=== PATIENT | female | born 1960 | race American Indian/Alaskan Native ===

== ENCOUNTER 2016-12-04 00:28 | Emergency (ER) | payer MEDICAID ==
[2016-12-04 08:04] LABS: Basophils % (Auto) 0.8 % (0.0-1.8); Eosinophils % (Auto) 2.8 % (0.0-4.3); Hematocrit 38.3 % (30.3-42.9); Hemoglobin 12.9 gm/dl (10.1-14.3); Mean Corpuscular HGB Conc 34 % (30-34); Mean Corpuscular Hemoglobin 30 pg (28-32); Mean Corpuscular Volume 90 fl (79-97); Platelet Count 324 K/mm3 (140-440); Red Blood Count 4.27 M/mm3 (3.65-5.03); White Blood Count 6.9 K/mm3 (4.5-11.0)
[2016-12-04 08:36] VITALS: BP 156/89
[2016-12-04 08:51] LABS: Anion Gap 19 mmol/L; BUN/Creatinine Ratio 3.75; Blood Urea Nitrogen 3 mg/dL (7-17); Calcium 9.4 mg/dL (8.4-10.2); Carbon Dioxide 26 mmol/L (22-30); Chloride 94.6 mmol/L (98-107); Glucose 375 mg/dL (65-100); Potassium 4.2 mmol/L (3.6-5.0); Sodium 135 mmol/L (137-145)
--- NOTE | 2016-12-04 09:06 | Emergency Department Report ---
HPI - General Chief Complaint: Chest Pain Time Seen by Provider: 12/04/16 07:51 - HPI HPI: This is a 56-year-old Afro-Citizen Of [place] female who presents to the emergency department with a few complaints. The patient complains to me of a right hand rash that has been going on for the past 6 months. She says it is not itchy and shows her hand with small flesh-colored bumps over the knuckles and the dorsal hand. She has no problem with range of motion and denies any weeping, bleeding, drainage. She is not taken anything for the rash. She also asks for a refill of her medications, Cogentin and Seroquel. She has a history of paranoid schizophrenia but denies any current auditory or visual hallucinations , suicidal or homicidal ideations. Patient must have complained of some type of chest pain through triage as that workup was started for her. However the patient denies any chest pain at this time and does not seem to remember telling anyone that she did have chest pain. Patient is not very forthcoming in giving me details on her living situation or the names of her physicians. However otherwise the patient is calm and cooperative and does not appear in any distress. She says that a friend dropped her off at the hospital to be seen today. ED Past Medical Hx - Past Medical History Hx Psychiatric Treatment: Yes (paranoid schizophrenia) - Surgical History Past Surgical History?: No - Social History Smoking Status: Current Every Day Smoker Substance Use Type: None - Medications Home Medications: Home Medications Medication Instructions Recorded Confirmed Last Taken Type Cogentin 2 mg PO DAILY #30 12/04/16 Unknown Rx SEROquel 200 mg PO DAILY #30 12/04/16 Unknown Rx ED Review of Systems ROS: Stated complaint: MH EVAL Other details as noted in HPI Comment: All other systems reviewed and negative Constitutional: denies: chills, fever Eyes: denies: eye pain, eye discharge, vision change ENT: denies: ear pain, throat pain Respiratory: denies: cough, shortness of breath, wheezing Cardiovascular: denies: chest pain, palpitations Gastrointestinal: denies: abdominal pain, nausea, diarrhea Genitourinary: denies: urgency, dysuria, discharge Musculoskeletal: denies: back pain, joint swelling, arthralgia Skin: rash. denies: pruritus Neurological: denies: headache, weakness, paresthesias Psychiatric: denies: auditory hallucinations, visual hallucinations, homicidal thoughts, suicidal thoughts Physical Exam - Physical Exam Vital Signs: Vital Signs 12/04/16 12/04/16 12/04/16 01:09 08:28 08:30 Temperature 98.1 F Pulse Rate 110 H Respiratory 16 Rate Blood Pressure 136/93 156/89 156/89 O2 Sat by Pulse 98 98 Oximetry 12/04/16 08:35 Temperature 98.7 F Pulse Rate Respiratory Rate Blood Pressure O2 Sat by Pulse Oximetry Physical Exam: GENERAL: The patient is well-developed well-nourished. HEENT: Normocephalic. Atraumatic. Extraocular motions are intact. Patient has moist mucous membranes. Pupils equal reactive to light bilaterally. NECK: Supple. Trachea is midline. CHEST/LUNGS: Clear to auscultation. There is no respiratory distress noted. HEART/CARDIOVASCULAR: Regular. There is no tachycardia. There is no gallop rub or murmur. ABDOMEN: Abdomen is soft, nontender. Patient has normal bowel sounds. There is no abdominal distention. SKIN: Patient has some flesh-colored papules seen to the dorsum the left hand but there is nothing in the flexor surfaces. No excoriations, leading, weeping or drainage. Skin is warm and dry. NEURO: The patient is awake, alert, and oriented. The patient is cooperative. The patient has no focal neurologic deficits. The patient has normal speech and gait. MUSCULOSKELETAL: There is no tenderness or deformity. There is no limitation range of motion. There is no evidence of acute injury. ED Course Vital Signs 12/04/16 12/04/16 12/04/16 01:09 08:28 08:30 Temperature 98.1 F Pulse Rate 110 H Respiratory 16 Rate Blood Pressure 136/93 156/89 156/89 O2 Sat by Pulse 98 98 Oximetry 12/04/16 08:35 Temperature 98.7 F Pulse Rate Respiratory Rate Blood Pressure O2 Sat by Pulse Oximetry ED Medical Decision Making - Lab Data Result diagrams: 12/04/16 07:47 12/04/16 07:47 - EKG Data -: EKG Interpreted by [facility] EKG shows normal: sinus rhythm, axis (LAD), intervals, QRS complexes (LVH), ST- T waves Rate: tachycardia (107 bpm) - EKG Data When compared to previous EKG there are: previous EKG unavailable Interpretation: LVH - Medical Decision Making This is a 56-year-old female who presents to the emergency department with a few different complaints. Patient does have history of schizophrenia but denies any suicidal or homicidal ideations, and denies any hallucinations. While the patient may not be forthcoming with answering certain questions, she has mostly cooperative and follows commands. She has a slightly strange demeanor but does not necessarily appear to be in any acute psychosis. The patient was allegedly evaluated through triage for chest discomfort, she had labs that showed a negative troponin and an EKG that does not show any signs of ST elevation DC, ischemia or dysrhythmia. Patient denies any chest discomfort at this time or today at all. She complains of a small rash to the hand that is a nonspecific dermatitis. There is nothing in the flexor surfaces and does not appear consistent with scabies. Patient is not pruritic and there are no excoriations. This patient does not have any suicidal or homicidal ideations or any hallucinations and does not appear to be in any psychosis, she is not a candidate to be made a 1013 or for inpatient psychiatric treatment. Patient is requesting a refill of her medications which she has been given a one-month supply. She is also been given a referral for the [facility] and a primary care physician. She's been encouraged to return with any worsening of her symptoms or any acute distress. The only significant abnormality in her labs was the hyperglycemia. She does not appear to be in diabetic ketoacidosis or HHNK. She was given 12 units of subcutaneous insulin. I wanted to recheck the patient's blood sugar level in about one hour but the patient was not willing to stay. Since she has not eaten 13 candidate, she was discharged with a refill of her medications but encouraged to eat some lunch that he is healthy and low in sugar and carbohydrates, and recheck her blood sugar. She will return to the ER with any worsening of her symptoms or any acute distress. - Differential Diagnosis DKA, HHNK, schizophrenia, dermatitis Critical Care Time: No Critical care attestation.: If time is entered above; I have spent that time in minutes in the direct care of this critically ill patient, excluding procedure time. ED Disposition Clinical Impression: History of schizophrenia, Medication refill, Dermatitis, Hyperglycemia Disposition: DISCHARGED TO HOME OR SELFCARE Is pt being admited?: No Does the pt Need Aspirin: No Condition: Good Instructions: Schizophrenia (ED) Additional Instructions: Please follow-up with a primary care doctor and your psychiatrist. I given you a referral for the [facility] facility for future psychiatric medication refills. Return to the emergency department with any acute distress. Prescriptions: Cogentin 2 mg PO DAILY #30 SEROquel 200 mg PO DAILY #30 Referrals: RANDI BROWNING MD [Primary Care Provider] - 3-5 Days KATHRYN VALLE MD [Staff Physician] - 3-[address] [facility] [Outside] - 3-5 Days [facility] [Outside] - 3-5 Days Time of Disposition: 10:04
== END 2016-12-04 10:18 | disposition home or self-care (01) ==
LOC: EEVIPCON 00:28 → ED 00:28
DX: L30.9 Dermatitis, unspecified (principal); R73.9 Hyperglycemia, unspecified; F20.0 Paranoid schizophrenia; F17.200 Nicotine dependence, unspecified, uncomplicated
CPT/HCPCS: 36415; 80048; 82962; 84484; 85025; 93005; 93010; 96372; J1815

== ENCOUNTER 2017-06-05 09:53 | Emergency (ER) | payer MEDICAID ==
[2017-06-05 10:55] VITALS: BP 142/84
[2017-06-05 11:00] LABS: Basophils % (Auto) 0.9 % (0.0-1.8); Eosinophils % (Auto) 2.7 % (0.0-4.3); Hematocrit 38.8 % (30.3-42.9); Hemoglobin 13.5 gm/dl (10.1-14.3); Mean Corpuscular HGB Conc 35 % (30-34); Mean Corpuscular Hemoglobin 31 pg (28-32); Mean Corpuscular Volume 89 fl (79-97); Platelet Count 367 K/mm3 (140-440); Red Blood Count 4.38 M/mm3 (3.65-5.03); Red Cell Distribution Width 12.8 % (13.2-15.2); White Blood Count 6.3 K/mm3 (4.5-11.0)
--- NOTE | 2017-06-05 11:08 | Emergency Department Report ---
ED Psych HPI - General Chief Complaint: Psych Stated Complaint: HEARING VOICES /MH Time Seen by Provider: 06/05/17 10:55 Source: patient, EMS Mode of arrival: Stretcher - History of Present Illness Initial Comments: Patient states that she doesn't like her present living status. She is having constant and daily problems with voices that "tell me what to do but they don't pain me". She states that she was previously admitted to [facility] perhaps 2 years ago. She states that she is getting her psychiatric medicine Cogentin and Haldol and Seroquel from [facility] but she doesn't like the care she is getting there and would rather go to [facility]. Apparently she is having paranoid ideation. In addition she is not compliant with all her psychiatric medication. MD Complaint: suicidal ideation (states that sometime she has this but has not done anything to harm herself.), other -: year(s) Associated Psychiatric Symptoms: racing thoughts, auditory hallucinations, other (paranoid ideation) History of same: Yes Quality: constant Improves With: none Worsens With: none Context: not taking psychiatric Associated Symptoms: denies other symptoms - Related Data Previous Rx's Medication Instructions Recorded Last Taken Type Cogentin 2 mg PO DAILY #30 12/04/16 Unknown Rx SEROquel 200 mg PO DAILY #30 12/04/16 Unknown Rx metFORMIN [Glucophage] 500 mg PO BID #60 tablet 06/05/17 Unknown Rx Allergies Allergy/AdvReac Type Severity Reaction Status Date / Time codeine Allergy Unknown Verified 06/05/17 10:30 Penicillins Allergy Unknown Verified 06/05/17 10:30 ED Review of Systems ROS: Stated complaint: HEARING VOICES /MH Other details as noted in HPI Constitutional: denies: chills, fever Eyes: denies: eye pain, eye discharge, vision change ENT: denies: ear pain, throat pain Respiratory: denies: cough, shortness of breath, wheezing Cardiovascular: denies: chest pain, palpitations Endocrine: no symptoms reported Gastrointestinal: denies: abdominal pain, nausea, diarrhea Genitourinary: denies: urgency, dysuria, discharge Musculoskeletal: denies: back pain, joint swelling, arthralgia Skin: denies: rash, lesions Neurological: denies: headache, weakness, paresthesias Psychiatric: as per HPI Hematological/Lymphatic: denies: easy bleeding, easy bruising ED Past Medical Hx - Past Medical History Hx Psychiatric Treatment: Yes (paranoid schizophrenia) - Social History Smoking Status: Unknown if ever smoked - Medications Home Medications: Home Medications Medication Instructions Recorded Confirmed Last Taken Type Cogentin 2 mg PO DAILY #30 12/04/16 Unknown Rx SEROquel 200 mg PO DAILY #30 12/04/16 Unknown Rx metFORMIN [Glucophage] 500 mg PO BID #60 tablet 06/05/17 Unknown Rx ED Physical Exam - General Limitations: No Limitations General appearance: alert, in no apparent distress - Head Head exam: Present: atraumatic, normocephalic - Eye Eye exam: Present: normal appearance - ENT ENT exam: Present: mucous membranes moist - Neck Neck exam: Present: normal inspection - Respiratory Respiratory exam: Present: normal lung sounds bilaterally. Absent: respiratory distress - Cardiovascular Cardiovascular Exam: Present: regular rate, normal rhythm. Absent: systolic murmur, diastolic murmur, rubs, gallop - GI/Abdominal GI/Abdominal exam: Present: soft, normal bowel sounds. Absent: distended, tenderness, guarding, rebound, rigid - Extremities Exam Extremities exam: Present: normal inspection - Back Exam Back exam: Present: normal inspection - Neurological Exam Neurological exam: Present: alert, oriented X3, CN II-XII intact, normal gait. Absent: motor sensory deficit - Psychiatric Psychiatric exam: Present: agitated, manic, other (hyperverbal) - Skin Skin exam: Present: warm, dry, intact, normal color. Absent: rash ED Course Vital Signs 06/05/17 06/05/17 06/05/17 10:19 10:24 10:54 Temperature 97.9 F Pulse Rate 88 90 Respiratory 16 16 16 Rate Blood Pressure 130/80 Blood Pressure 142/84 [Left] O2 Sat by Pulse 96 96 97 Oximetry - Reevaluation(s) Reevaluation #1: Mental health notified of the need for placement. Patient meets 1013 hold at least for stabilization of her paranoid ideation and acute on chronic psychosis. 06/05/17 11:07 Reevaluation #2: Patient was placed on Geodon. She has been calm. Discussed with mental health counselors. 1013 has been executed. Placement is pending 06/05/17 16:12 ED Medical Decision Making - Lab Data Result diagrams: 06/05/17 10:47 06/05/17 10:47 Laboratory Results - last 24 hr 06/05/17 10:47 WBC 6.3 RBC 4.38 Hgb 13.5 Hct 38.8 MCV 89 MCH 31 MCHC 35 H RDW 12.8 L Plt Count 367 Lymph % (Auto) 31.1 [place] % (Auto) 9.9 H Eos % (Auto) 2.7 Baso % (Auto) 0.9 Lymph # 2.0 [place] # 0.6 Eos # 0.2 Baso # 0.1 Seg Neutrophils % 55.4 Seg Neutrophils # 3.5 Laboratory Results - last 24 hr 06/05/17 06/05/17 06/05/17 10:40 10:47 10:47 WBC 6.3 RBC 4.38 Hgb 13.5 Hct 38.8 MCV 89 MCH 31 MCHC 35 H RDW 12.8 L Plt Count 367 Lymph % (Auto) 31.1 [place] % (Auto) 9.9 H Eos % (Auto) 2.7 Baso % (Auto) 0.9 Lymph # 2.0 [place] # 0.6 Eos # 0.2 Baso # 0.1 Seg Neutrophils % 55.4 Seg Neutrophils # 3.5 Sodium 134 L Potassium 3.5 L Chloride 94.1 L Carbon Dioxide 22 Anion Gap 21 BUN 13 Creatinine 0.8 Estimated GFR > 60 BUN/Creatinine Ratio 16.25 Glucose 281 H Calcium 9.4 Plasma/Serum Alcohol < 0.01 Critical care attestation.: If time is entered above; I have spent that time in minutes in the direct care of this critically ill patient, excluding procedure time. 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
[2017-06-05] MEDS ORDERED: MILK OF MAGNESIA PO PRN (11:09)
[2017-06-05] MEDS ORDERED: ALUM-MAG HYDROX-SIMETH 200-200-20MG/5ML PO PRN (11:09)
[2017-06-05] MEDS ORDERED: TYLENOL PO PRN (11:09)
[2017-06-05 11:12] LABS: Anion Gap 21 mmol/L; BUN/Creatinine Ratio 16.25; Blood Urea Nitrogen 13 mg/dL (7-17); Calcium 9.4 mg/dL (8.4-10.2); Carbon Dioxide 22 mmol/L (22-30); Chloride 94.1 mmol/L (98-107); Glucose 281 mg/dL (65-100); Potassium 3.5 mmol/L (3.6-5.0); Sodium 134 mmol/L (137-145)
[2017-06-05] MEDS ORDERED: GEODON PO SCH (12:00)
[2017-06-05] MEDS ORDERED: GEODON IM PRN (16:19)
[2017-06-05 17:10] LABS: Urine Drugs of Abuse Note Disclamer
[2017-06-05 17:22] LABS: Bacteria,Urine 2+ /HPF (Negative); Bilirubin,Urine NEG (Negative); Blood,Urine MOD (Negative); Ketones,Urine NEG (Negative); Leukocyte Esterase,Urine LG (Negative); Mucus,Urine FEW /HPF; Nitrite,Urine NEG (Negative); Protein,Urine <15 mg/dL mg/dL (Negative)
[2017-06-05] MEDS ORDERED: GLUCOPHAGE PO SCH (22:00)
--- NOTE | 2017-06-05 23:21 | Consultation ---
History of Present Illness - Reason for Consult Consult date: 06/05/17 Reason for consult: psychiatric evaluation - Chief Complaint Chief complaint: "I don't want to answer anymore questions." - History of Present Psychiatric Illness 56 year old female seen in the ER for psychiatric evaluation. She was minimally cooperative on interivew. Per the record, she told the ER physician she doesn't like her present living status. Per the record she is having constant and daily problems with voices that "tell me what to do but they don't pain me". She confirmed being previously admitted to [facility] a couple of years ago. She expressed thoughts that her medications are poisoned and then threw them away. She is exhibiting paranoid delusions and did not provide additional information. Medications and Allergies Allergies Allergy/AdvReac Type Severity Reaction Status Date / Time codeine Allergy Unknown Verified 06/05/17 10:30 Penicillins Allergy Unknown Verified 06/05/17 10:30 Home Medications Medication Instructions Recorded Confirmed Last Taken Type Cogentin 2 mg PO DAILY #30 12/04/16 Unknown Rx SEROquel 200 mg PO DAILY #30 12/04/16 Unknown Rx metFORMIN [Glucophage] 500 mg PO BID #60 tablet 06/05/17 Unknown Rx Past psychiatric history - Past Medical History Past Medical History: other (unknown) - past Psychiatric treatment and history psychiatric treatment history: [facility] hospitalization - Social History Social history: other (unknown) Mental Status Exam - Vital signs Last Vital Signs Temp 97.9 F 06/05/17 10:54 Pulse 90 06/05/17 10:54 Resp 16 06/05/17 10:54 BP 142/84 06/05/17 10:54 Pulse Ox 97 06/05/17 10:54 - Exam Narrative exam: She is mostly uncooperative. She is alert and oriented to person, place, and time. Signs of paranoia are present and delusions are likely. She expressed suicidal ideation, per the record. Unable to obtain additional information from the patient. Results Result Diagrams: 06/05/17 10:47 06/05/17 10:47 Abnormal lab results 06/05/17 06/05/17 06/05/17 Range/Units 10:47 10:47 17:08 MCHC 35 H (30-34) % RDW 12.8 L (13.2-15.2) % [place] % (Auto) 9.9 H (0.0-7.3) % Sodium 134 L (137-145) mmol/L Potassium 3.5 L (3.6-5.0) mmol/L Chloride 94.1 L (98-107) mmol/L Glucose 281 H (65-100) mg/dL Urine WBC (Auto) 12.0 H (0.0-6.0) /HPF All other labs normal. Assessment and Plan Assessment and plan: Impression: Psychosis unspecified She requires psychiatric stabilization Recommendation: 1013 and transfer to inpatient psychiatric facility.
== END 2017-06-05 19:44 ==
LOC: ED 09:53
DX: F23 Brief psychotic disorder (principal); F20.0 Paranoid schizophrenia; E11.65 Type 2 diabetes mellitus with hyperglycemia; Z88.0 Allergy status to penicillin; Z88.6 Allergy status to analgesic agent
CPT/HCPCS: 36415; 80048; 80307; 81001; 85025; 99285; G0480; 80320

== ENCOUNTER 2017-09-25 17:06 | Emergency (ER) | payer MEDICAID ==
[2017-09-25 18:55] LABS: Basophils % (Auto) 0.7 % (0.0-1.8); Eosinophils % (Auto) 2.8 % (0.0-4.3); Hemoglobin 14.2 gm/dl (10.1-14.3); Mean Corpuscular HGB Conc 34 % (30-34); Mean Corpuscular Hemoglobin 31 pg (28-32); Mean Corpuscular Volume 90 fl (79-97); Platelet Count 343 K/mm3 (140-440); Red Blood Count 4.66 M/mm3 (3.65-5.03); Red Cell Distribution Width 12.9 % (13.2-15.2); White Blood Count 6.2 K/mm3 (4.5-11.0)
[2017-09-25 19:05] LABS: Anion Gap 16 mmol/L; BUN/Creatinine Ratio 5; Blood Urea Nitrogen 4 mg/dL (7-17); Calcium 9.7 mg/dL (8.4-10.2); Carbon Dioxide 27 mmol/L (22-30); Chloride 95.5 mmol/L (98-107); Glucose 165 mg/dL (65-100); Sodium 134 mmol/L (137-145)
[2017-09-26 01:08] LABS: Urine Drugs of Abuse Note Disclamer
[2017-09-26 01:47] LABS: Bacteria,Urine 1+ /HPF (Negative); Bilirubin,Urine NEG (Negative); Blood,Urine MOD (Negative); Ketones,Urine NEG (Negative); Leukocyte Esterase,Urine LG (Negative); Mucus,Urine FEW /HPF; Nitrite,Urine NEG (Negative); Protein,Urine <15 mg/dL mg/dL (Negative)
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
--- NOTE | 2017-09-26 13:20 | Consultation ---
History of Present Illness - Reason for Consult Consult date: 09/26/17 Reason for consult: Mental Health Evaluation Requesting physician: ISABELLA JHAVERI - Chief Complaint Chief complaint: "It's demons and warlocks in my food" - History of Present Psychiatric Illness 56 y.o. AA female presenting to [facility] for bizarre behavior. Today patient is cooperative, but delusional and disorganized during the assessment. She stated warlocks and demons are located in the attic at her residence. She stated that someone is poisoning her food and medications. During the interview, she had to be redirected several times to keep her on the right topic. When asked more questions about how she ended up at the hospital, the patient answers were not logical. She stated hearing voices, but could not elaborate what the voices were saying. The patient stated that she take Seroquel and Cogentin. No gestures of SI/HI's. Medications and Allergies Allergies Allergy/AdvReac Type Severity Reaction Status Date / Time codeine Allergy Unknown Verified 06/05/17 10:30 Penicillins Allergy Unknown Verified 06/05/17 10:30 Home Medications Medication Instructions Recorded Confirmed Last Taken Type Cogentin 2 mg PO DAILY #30 12/04/16 Unknown Rx SEROquel 200 mg PO DAILY #30 12/04/16 Unknown Rx metFORMIN [Glucophage] 500 mg PO BID #60 tablet 06/05/17 Unknown Rx Nitrofurantoin [place]/M-Cryst 100 mg PO BID #10 capsule 09/26/17 Unknown Rx [Macrobid CAP] Past psychiatric history - Past Medical History Past Medical History: other (Unable to obtain) Past Surgical History: Other (Unable to obtain) - past Psychiatric treatment and history psychiatric treatment history: Per the record, patient been inpatient at [facility]. Cannot obtain a [facility] psy hx. - Social History Social history: other (per the patient - "I reside in a home") Mental Status Exam - Vital signs Last Vital Signs Temp 98 F 09/26/17 01:11 Pulse 95 H 09/26/17 01:11 Resp 18 09/26/17 01:11 BP 119/71 09/26/17 01:11 Pulse Ox 100 09/26/17 01:11 - Exam Narrative exam: MSE: Appearance: cooperative Behavior: regular eye contact Speech: loud tone Mood: agitated Affect: congruent to mood Thought Process: tangential Thought Content: denies SI/HI's and VH's, delusional, disorganized Motor Activity: sitting in the bed Cognition: A/O x3 Insight: poor Judgment: poor Results Result Diagrams: 09/25/17 18:23 09/25/17 18:23 Abnormal lab results 09/25/17 09/25/17 09/25/17 Range/Units 18:23 18:23 Unknown RDW 12.9 L (13.2-15.2) % Lymph % (Auto) 43.4 H (13.4-35.0) % [place] % (Auto) 9.3 H (0.0-7.3) % Sodium 134 L (137-145) mmol/L Chloride 95.5 L (98-107) mmol/L BUN 4 L (7-17) mg/dL Glucose 165 H (65-100) mg/dL Urine WBC (Auto) 34.0 H (0.0-6.0) /HPF All other labs normal. Assessment and Plan Assessment and plan: Impression: Unspecified Psychosis. Today patient is cooperative, but delusional and disorganized during the assessment. Urine WBC 36.0. UDS negative. DDx: Schizophrenia Paranoid Type, R/O Bipolar, Delusional DO Recommendation/Plan: Continue 1013 with placement to inpatient psy services. Start Seroquel 200 mg PO HS for psychosis and Cogentin 0.5 mg PO HS for EPS prevention. Discussed possible metabolic side effects of Seroquel with patient. Informed ER Physician about the patient's urine WBC of 36.
[2017-09-26] MEDS ORDERED: MACROBID PO ONE (15:05)
[2017-09-26 18:16] VITALS: BP 121/72
[2017-09-26] MEDS ORDERED: COGENTIN PO SCH (22:00)
== END 2017-09-26 18:32 ==
LOC: ED 17:06
DX: F29 Unspecified psychosis not due to a substance or known physiological condition (principal); F20.0 Paranoid schizophrenia
CPT/HCPCS: 36415; 80048; 80307; 81001; 85025; 99285; G0480; 80320

== ENCOUNTER 2017-10-20 12:34 | Emergency (ER) | payer MEDICAID ==
[2017-10-20 13:14] LABS: Basophils % (Auto) 0.8 % (0.0-1.8); Eosinophils % (Auto) 2.9 % (0.0-4.3); Hematocrit 36.8 % (30.3-42.9); Hemoglobin 12.1 gm/dl (10.1-14.3); Mean Corpuscular HGB Conc 33 % (30-34); Mean Corpuscular Hemoglobin 30 pg (28-32); Mean Corpuscular Volume 92 fl (79-97); Platelet Count 329 K/mm3 (140-440); Red Cell Distribution Width 13.4 % (13.2-15.2); White Blood Count 6.3 K/mm3 (4.5-11.0)
[2017-10-20 13:32] LABS: Anion Gap 20 mmol/L; BUN/Creatinine Ratio 10; Blood Urea Nitrogen 7 mg/dL (7-17); Calcium 9.2 mg/dL (8.4-10.2); Carbon Dioxide 26 mmol/L (22-30); Glucose 152 mg/dL (65-100); Potassium 4.3 mmol/L (3.6-5.0); Sodium 141 mmol/L (137-145)
[2017-10-20 13:34] LABS: Urine Drugs of Abuse Note Disclamer
[2017-10-20 13:43] LABS: Bilirubin,Urine NEG (Negative); Blood,Urine NEG (Negative); Ketones,Urine NEG (Negative); Leukocyte Esterase,Urine SM (Negative); Mucus,Urine FEW /HPF; Nitrite,Urine NEG (Negative)
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
--- NOTE | 2017-10-21 11:16 | Consultation ---
History of Present Illness - Reason for Consult Consult date: 10/21/17 Reason for consult: Mental Health Evaluation Requesting physician: NELY CALLE - Chief Complaint Chief complaint: "They are witches" - History of Present Psychiatric Illness 56 y.o. AA female presenting to [facility] for bizarre behavior. Per the record the patient report that a [place] sales representative cash registers is trying to poison her. Today the patient is calm with a tangential thought process. She stated that everyone at [place] are "witches." She stated that she does not want to return to her current residence because of the witches scare her. During the interview the patient had to be redirected several time to keep her on topic. She stated that she have not taken her medications in 2 days (Cogentin/Seroquel). She could not confirm or deny AH's, but denies VH's. She denies SI/HI's, sleep disturbance, and a poor appetite. She denies alcohol consumption (etoh), but admit to using cocaine. Medications and Allergies Allergies Allergy/AdvReac Type Severity Reaction Status Date / Time codeine Allergy Unknown Verified 06/05/17 10:30 erythromycin base Allergy Unknown Verified 10/20/17 12:46 Penicillins Allergy Unknown Verified 06/05/17 10:30 Home Medications Medication Instructions Recorded Confirmed Last Taken Type Cogentin 2 mg PO DAILY #30 12/04/16 10/20/17 Unknown Rx SEROquel 200 mg PO DAILY #30 12/04/16 10/20/17 Unknown Rx metFORMIN [Glucophage] 500 mg PO BID #60 tablet 06/05/17 10/20/17 Unknown Rx Nitrofurantoin [place]/M-Cryst 100 mg PO BID #10 capsule 09/26/17 10/20/17 Unknown Rx [Macrobid CAP] Past psychiatric history - Past Medical History Past Medical History: diabetes Past Surgical History: No surgical history - past Psychiatric treatment and history Psych: Schizophrenia psychiatric treatment history: Multiple inpatient psy services. Denies a fam psy hx. - Social History Social history: other (Reside at a senior care) Mental Status Exam - Vital signs Last Vital Signs Temp 98.9 F 10/21/17 05:54 Pulse 93 H 10/21/17 05:54 Resp 16 10/21/17 05:54 BP 119/73 10/21/17 05:54 Pulse Ox 100 12/25/17 05:54 - Exam Narrative exam: MSE: Appearance: calm, cooperative Behavior: regular eye contact Speech: regular rate and tone Mood: "okay" Affect: blunted Thought Process: tangential Thought Content: denies SI/HI's and VH's, disorganized Motor Activity: ambulatory Cognition: A/O x3 Insight: poor Judgment: poor Results Result Diagrams: 10/20/17 12:59 10/20/17 12:59 Abnormal lab results 10/20/17 10/20/17 Range/Units 12:59 12:59 Lymph % (Auto) 38.2 H (13.4-35.0) % [place] % (Auto) 8.8 H (0.0-7.3) % Glucose 152 H (65-100) mg/dL All other labs normal. Assessment and Plan Assessment and plan: Impression: Unspecified Psychosis. Substance Use DO (cocaine) Today the patient is calm with a tangential thought process. Patient positive for cocaine. DDx: Schizophrenia Paranoid Type, Delusional DO, R/O Substance Induced Psychosis Recommendation/Plan: Continue 1013 with placement to inpatient psy services. Explained to the patient possible metabolic side effects of Seroquel, patient takes Metformin for diabetes. She stated that she took Haldol in the past. Start Haldol 5 mg PO HS for psychosis and Cogentin 0.5 mg PO HS for EPS prevention.
[2017-10-21] MEDS ORDERED: COGENTIN PO SCH (22:00)
[2017-10-21] MEDS ORDERED: HALDOL PO SCH (22:00)
[2017-10-22] MEDS ORDERED: TYLENOL ONE (04:23)
[2017-10-22] MEDS ORDERED: TYLENOL PO PRN (04:35)
[2017-10-22] MEDS ORDERED: GEODON IM PRN (04:36)
[2017-10-22 09:26] VITALS: BP 140/90
--- NOTE | 2017-10-22 10:23 | Progress Note ---
Subjective - Reason for Consult Consult date: 10/22/17 Reason for consult: Psychiatry Follow-up - Chief Complaint Chief complaint: "The witches are still around" 56 y.o. AA female presenting to [facility] for bizarre behavior. Per the record the patient report that a j[place] telephone sales representative is trying to poison her. Today the patient is calm with a tangential thought process. The patient continue to state that witches are located at her current residence. She stated that the witches maybe "everywhere." She stated that the voices are getting worse, but she tries to ignore them. She denies SI/HI's and VH's. She denies any side effects of her medications. Mental Status Exam - Vital signs Last Vital Signs Temp 98.2 F 10/22/17 09:25 Pulse 87 10/22/17 09:25 Resp 18 10/22/17 09:25 BP 140/90 10/22/17 09:25 Pulse Ox 98 10/22/17 09:25 - Exam Narrative exam: MSE: Appearance: calm, cooperative Behavior: regular eye contact Speech: regular rate and tone Mood: "okay" Affect: blunted Thought Process: tangential Thought Content: denies SI/HI's and VH's, disorganized, delusional Motor Activity: ambulatory Cognition: A/O x3 Insight: poor Judgment: poor Assessment and Plan Impression: Unspecified Psychosis. Substance Use DO (cocaine) Today the patient is calm with a tangential thought process. Patient positive for cocaine. DDx: Schizophrenia Paranoid Type, Delusional DO, R/O Substance Induced Psychosis Recommendation/Plan: Continue 1013 with placement [facility] today. Explained to the patient possible metabolic side effects of Seroquel, patient takes Metformin for diabetes. She stated that she took Haldol in the past. Continue Haldol 5 mg PO HS for psychosis and Cogentin 0.5 mg PO HS for EPS prevention.
== END 2017-10-22 11:35 ==
LOC: EEVIPCON 12:34 → ED 12:34
DX: F14.10 Cocaine abuse, uncomplicated (principal); F22 Delusional disorders; F20.9 Schizophrenia, unspecified
CPT/HCPCS: 36415; 80048; 80307; 81001; 82962; 85025; 99285; G0480; 80320

== ENCOUNTER 2017-11-16 18:43 | Emergency (ER) | payer MEDICAID ==
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
[2017-11-16 23:46] LABS: Hemoglobin 12.5 gm/dl (10.1-14.3); Mean Corpuscular HGB Conc 34 % (30-34); Mean Corpuscular Hemoglobin 31 pg (28-32); Mean Corpuscular Volume 91 fl (79-97); Platelet Count 313 K/mm3 (140-440); Red Blood Count 4.08 M/mm3 (3.65-5.03); Red Cell Distribution Width 13.4 % (13.2-15.2)
[2017-11-17 00:09] LABS: Alanine Aminotransferase 15 units/L (7-56); Albumin 4.3 g/dL (3.9-5); BUN/Creatinine Ratio 12; Blood Urea Nitrogen 7 mg/dL (7-17); Hemolysis Index 9
[2017-11-17 07:48] LABS: Bilirubin,Urine NEG (Negative); Blood,Urine NEG (Negative); Color,Urine Yellow (Yellow); Mucus,Urine FEW /HPF; Nitrite,Urine NEG (Negative); Protein,Urine <15 mg/dL mg/dL (Negative)
[2017-11-17 10:46] VITALS: BP 126/86
[2017-11-17 11:54] LABS: Amphetamine Screen,Urine PRESUMPTIVE NEGATIVE; Benzodiazepines Screen,Urine PRESUMPTIVE NEGATIVE; Cannabinoid Screen,Urine PRESUMPTIVE NEGATIVE; Cocaine Screen,Urine PRESUMPTIVE NEGATIVE; Methadone Screen,Urine PRESUMPTIVE NEGATIVE; Opiate Screen,Urine PRESUMPTIVE NEGATIVE
[2017-11-17] MEDS ORDERED: GLUCOPHAGE ONE (12:17)
[2017-11-17] MEDS ORDERED: GLUCOPHAGE PO SCH (13:00)
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
== END 2017-11-17 21:55 | disposition other institution (70) ==
LOC: EEVIPCON 18:43 → ED 18:43
DX: F20.0 Paranoid schizophrenia (principal); F17.200 Nicotine dependence, unspecified, uncomplicated; Z88.0 Allergy status to penicillin; Z88.5 Allergy status to narcotic agent; Z88.8 Allergy status to other drugs, medicaments and biological substances
CPT/HCPCS: 36415; 80053; 80307; 81001; 82962; 85027; 99285

== ENCOUNTER 2018-02-13 22:07 | Emergency (ER) | payer MEDICAID ==
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
[2018-02-13 23:26] LABS: Basophils # (Auto) 0.1 K/mm3 (0.0-0.1); Eosinophils # (Auto) 0.2 K/mm3 (0.0-0.4); Eosinophils % (Auto) 2.2 % (0.0-4.3); Hematocrit 33.2 % (30.3-42.9); Hemoglobin 11.2 gm/dl (10.1-14.3); Lymphocytes # (Auto) 2.4 K/mm3 (1.2-5.4); Lymphocytes % (Auto) 34.8 % (13.4-35.0); Mean Corpuscular HGB Conc 34 % (30-34); Mean Corpuscular Hemoglobin 30 pg (28-32); Mean Corpuscular Volume 89 fl (79-97); Monocytes # (Auto) 0.5 K/mm3 (0.0-0.8); Platelet Count 384 K/mm3 (140-440); Red Blood Count 3.74 M/mm3 (3.65-5.03); Red Cell Distribution Width 13.4 % (13.2-15.2)
[2018-02-13 23:39] LABS: BUN/Creatinine Ratio 15; Blood Urea Nitrogen 12 mg/dL (7-17); Calcium 9.1 mg/dL (8.4-10.2); Hemolysis Index 3
[2018-02-14 12:31] LABS: Bilirubin,Urine NEG (Negative); Blood,Urine NEG (Negative); Color,Urine Yellow (Yellow); Protein,Urine <15 mg/dL mg/dL (Negative)
[2018-02-14 12:33] LABS: Amphetamine Screen,Urine PRESUMPTIVE NEGATIVE; Benzodiazepines Screen,Urine PRESUMPTIVE NEGATIVE; Cannabinoid Screen,Urine PRESUMPTIVE NEGATIVE; Cocaine Screen,Urine PRESUMPTIVE NEGATIVE; Methadone Screen,Urine PRESUMPTIVE NEGATIVE; Opiate Screen,Urine PRESUMPTIVE NEGATIVE
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
[2018-02-14 20:51] VITALS: BP 130/83
[2018-02-14] MEDS ORDERED: COGENTIN PO SCH (22:00)
[2018-02-14] MEDS ORDERED: HALDOL PO SCH (22:00)
== END 2018-02-14 20:38 ==
LOC: ED 22:07
DX: F23 Brief psychotic disorder (principal); F22 Delusional disorders; F20.0 Paranoid schizophrenia; Z88.0 Allergy status to penicillin; Z88.5 Allergy status to narcotic agent
CPT/HCPCS: 36415; 80048; 80307; 81001; 85025; 99285; G0480; 80320

== ENCOUNTER 2018-06-13 11:04 | Emergency (ER) | payer MEDICAID ==
--- NOTE | 2018-06-13 11:41 | Emergency Department Report ---
HPI - General Chief Complaint: Psych Time Seen by Provider: 06/13/18 11:33 - HPI HPI: [facility] The patient is a 57-year-old female presenting with chief complaint of combative behavior. The patient was a resident at [facility] and was reportedly combative. EMS was called and administered Haldol 5 mg, Versed 5 mg and Benadryl 50 mg prior to arrival. Patient is now resting comfortably. When awakened the patient states "I ain't did nothing." I asked the patient if anything is bothering her the patient replies "everything." Patient denies suicidal or homicidal ideation. Patient denies auditory hallucinations but admits to visual hallucinations. When asked what her visual hallucinations include the patient replies "some of everything." Location: Mental state Duration: [See above] Quality: Reported to have been combative Severity: Moderate Modifying factors: [see above] Context: [see above] Mode of transportation: [not driving] ED Past Medical Hx - Past Medical History Previous Medical History?: Yes Hx Psychiatric Treatment: Yes (paranoid schizophrenia) - Surgical History Additional Surgical History: BERTO - Family History Family history: no significant - Social History Smoking Status: Current Some Day Smoker Substance Use Type: Alcohol - Medications Home Medications: Home Medications Medication Instructions Recorded Confirmed Last Taken Type Cogentin 2 mg PO DAILY #30 12/04/16 10/20/17 Unknown Rx SEROquel 200 mg PO DAILY #30 12/04/16 10/20/17 Unknown Rx Nitrofurantoin [place]/M-Cryst 100 mg PO BID #10 capsule 09/26/17 10/20/17 Unknown Rx [Macrobid CAP] metFORMIN [Glucophage] 500 mg PO QDAY 11/17/17 11/17/17 Unknown History ED Review of Systems ROS: Stated complaint: ALTERED MENTAL STATUS Other details as noted in HPI Comment: Unobtainable due to pts medical conditions Psychiatric: visual hallucinations. denies: auditory hallucinations, homicidal thoughts, suicidal thoughts Physical Exam - Physical Exam Vital Signs: Vital Signs 06/13/18 11:32 Temperature 98.5 F Pulse Rate 79 Respiratory 18 Rate Blood Pressure 152/90 [Left] O2 Sat by Pulse 99 Oximetry Physical Exam: GENERAL: The patient is well-developed well-nourished female sleeping on stretcher not appearing to be in acute distress. Patient is awakened by verbal and tactile stimuli HEENT: Normocephalic. Atraumatic. Extraocular motions are intact. Patient has moist mucous membranes. NECK: Supple. Trachea midline CHEST/LUNGS: Clear to auscultation. There is no respiratory distress noted. HEART/CARDIOVASCULAR: Regular. There is no tachycardia. There is no gallop rub or murmur. ABDOMEN: Abdomen is soft, nontender. Patient has normal bowel sounds. There is no abdominal distention. SKIN: There is no rash. There is no edema. There is no diaphoresis. NEURO: The patient is awake and alert. The patient is cooperative. The patient has normal speech MUSCULOSKELETAL: There is no evidence of acute injury. ED Course Vital Signs 06/13/18 11:32 Temperature 98.5 F Pulse Rate 79 Respiratory 18 Rate Blood Pressure 152/90 [Left] O2 Sat by Pulse 99 Oximetry ED Medical Decision Making - Lab Data Result diagrams: 06/13/18 11:48 06/13/18 11:48 Laboratory Tests 06/13/18 06/13/18 06/13/18 11:48 11:48 11:48 WBC RBC Hgb Hct MCV MCH MCHC RDW Plt Count Lymph % (Auto) [place] % (Auto) Eos % (Auto) Baso % (Auto) Lymph # [place] # Eos # Baso # Seg Neutrophils % Seg Neutrophils # Sodium 140 Potassium 3.3 L Chloride 101.0 Carbon Dioxide 26 Anion Gap 16 BUN 6 L Creatinine 0.6 L Estimated GFR > 60 BUN/Creatinine Ratio 10 Glucose 116 H Calcium 9.0 Urine Color Urine Turbidity Urine pH Ur Specific [place] Urine Protein Urine Glucose (UA) Urine Ketones Urine Blood Urine Nitrite Urine Bilirubin Urine Urobilinogen Ur Leukocyte Esterase Urine WBC (Auto) Urine RBC (Auto) U Epithel Cells (Auto) Salicylates < 0.3 L Urine Opiates Screen Urine Methadone Screen Acetaminophen < 5.0 L Ur Barbiturates Screen Ur Phencyclidine Scrn Ur Amphetamines Screen Urine Cocaine Screen U Marijuana (THC) Screen Drugs of Abuse Note Plasma/Serum Alcohol 06/13/18 06/13/18 06/13/18 11:48 11:48 17:16 WBC 4.6 RBC 3.95 Hgb 12.0 Hct 35.3 MCV 89 MCH 30 MCHC 34 RDW 13.1 L Plt Count 337 Lymph % (Auto) 43.4 H [place] % (Auto) 9.5 H Eos % (Auto) 2.2 Baso % (Auto) 0.9 Lymph # 2.0 [place] # 0.4 Eos # 0.1 Baso # 0.0 Seg Neutrophils % 44.0 Seg Neutrophils # 2.0 Sodium Potassium Chloride Carbon Dioxide Anion Gap BUN Creatinine Estimated GFR BUN/Creatinine Ratio Glucose Calcium Urine Color Colorless Urine Turbidity Clear Urine pH 7.0 Ur Specific [place] 1.002 L Urine Protein <15 mg/dl Urine Glucose (UA) Neg Urine Ketones Neg Urine Blood Neg Urine Nitrite Neg Urine Bilirubin Neg Urine Urobilinogen 4.0 Ur Leukocyte Esterase Sm Urine WBC (Auto) 2.0 Urine RBC (Auto) 1.0 U Epithel Cells (Auto) 1.0 Salicylates Urine Opiates Screen Urine Methadone Screen Acetaminophen Ur Barbiturates Screen Ur Phencyclidine Scrn Ur Amphetamines Screen Urine Cocaine Screen U Marijuana (THC) Screen Drugs of Abuse Note Plasma/Serum Alcohol < 0.01 06/13/18 17:16 WBC RBC Hgb Hct MCV MCH MCHC RDW Plt Count Lymph % (Auto) [place] % (Auto) Eos % (Auto) Baso % (Auto) Lymph # [place] # Eos # Baso # Seg Neutrophils % Seg Neutrophils # Sodium Potassium Chloride Carbon Dioxide Anion Gap BUN Creatinine Estimated GFR BUN/Creatinine Ratio Glucose Calcium Urine Color Urine Turbidity Urine pH Ur Specific [place] Urine Protein Urine Glucose (UA) Urine Ketones Urine Blood Urine Nitrite Urine Bilirubin Urine Urobilinogen Ur Leukocyte Esterase Urine WBC (Auto) Urine RBC (Auto) U Epithel Cells (Auto) Salicylates Urine Opiates Screen Presumptive negative Urine Methadone Screen Presumptive negative Acetaminophen Ur Barbiturates Screen Presumptive negative Ur Phencyclidine Scrn Presumptive negative Ur Amphetamines Screen Presumptive negative Urine Cocaine Screen Presumptive negative U Marijuana (THC) Screen Presumptive negative Drugs of Abuse Note Disclamer Plasma/Serum Alcohol - Differential Diagnosis schizophrenia, combative behavior Critical care attestation.: If time is entered above; I have spent that time in minutes in the direct care of this critically ill patient, excluding procedure time. ED Disposition Clinical Impression: Schizophrenia, Combative behavior Disposition: DC/TX-65 PSY HOSP/PSY UNIT Is pt being admited?: No Does the pt Need Aspirin: No Condition: Fair Referrals: PRIMARY CARE, [Primary Care Provider] - 3-5 Days Time of Disposition: 18:08 (awaiting acceptance)
[2018-06-13] MEDS ORDERED: HALDOL IM PRN (11:58)
[2018-06-13] MEDS ORDERED: BENADRYL IM PRN (11:58)
[2018-06-13] MEDS ORDERED: ATIVAN IM PRN (11:58)
[2018-06-13 12:40] LABS: Basophils % (Auto) 0.9 % (0.0-1.8); Eosinophils # (Auto) 0.1 K/mm3 (0.0-0.4); Eosinophils % (Auto) 2.2 % (0.0-4.3); Hematocrit 35.3 % (30.3-42.9); Lymphocytes % (Auto) 43.4 % (13.4-35.0); Mean Corpuscular HGB Conc 34 % (30-34); Mean Corpuscular Hemoglobin 30 pg (28-32); Mean Corpuscular Volume 89 fl (79-97); Monocytes # (Auto) 0.4 K/mm3 (0.0-0.8); Monocytes % (Auto) 9.5 % (0.0-7.3); Platelet Count 337 K/mm3 (140-440); Red Blood Count 3.95 M/mm3 (3.65-5.03); Red Cell Distribution Width 13.1 % (13.2-15.2)
[2018-06-13 12:46] LABS: BUN/Creatinine Ratio 10; Blood Urea Nitrogen 6 mg/dL (7-17); Hemolysis Index 20
[2018-06-13 17:29] LABS: Bilirubin,Urine NEG (Negative); Blood,Urine NEG (Negative); Color,Urine Colorless (Yellow); Protein,Urine <15 mg/dL mg/dL (Negative)
[2018-06-13 17:36] LABS: Amphetamine Screen,Urine PRESUMPTIVE NEGATIVE; Cannabinoid Screen,Urine PRESUMPTIVE NEGATIVE; Cocaine Screen,Urine PRESUMPTIVE NEGATIVE; Methadone Screen,Urine PRESUMPTIVE NEGATIVE; Opiate Screen,Urine PRESUMPTIVE NEGATIVE
[2018-06-13] MEDS ORDERED: K-DUR PO ONE ×2 (18:08→22:14)
[2018-06-13 18:11] LABS: Benzodiazepines Screen,Urine PRESUMPTIVE POSITIVE
[2018-06-14 05:48] VITALS: BP 125/80
== END 2018-06-14 06:32 ==
LOC: ED 11:04
DX: F20.0 Paranoid schizophrenia (principal); F91.9 Conduct disorder, unspecified; F17.200 Nicotine dependence, unspecified, uncomplicated
CPT/HCPCS: 36415; 80048; 80307; 81001; 85025; 99285; G0480; 80320

== ENCOUNTER 2018-12-22 17:17 | Emergency (ER) | payer MEDICAID ==
--- NOTE | 2018-12-22 17:45 | Emergency Department Report ---
ED Psych HPI - General Chief Complaint: Psych Stated Complaint: 5MOS PREG CONTRACTIONS Time Seen by Provider: 12/22/18 17:30 Source: patient, EMS Mode of arrival: Stretcher - History of Present Illness Initial Comments: Patient is a 58-year-old AA female who has a past smoker history of paranoid schizophrenia and occasional aggressive and combative behavior who is presenting from [facility] stating that she is having contractions. Patient believes that she is 6-7 months and started having contractions approximately 2 hours ago. Patient is unable to give me any information regarding her menses. Patient's actual refused to answer any other questions an d will only state that she's having contractions and she needs help with her baby. Patient will not tell me whether she is been confirmed as being and who did a test. Patient is pacing back and forth in the room somewhat agitated. - Related Data Home Medications Medication Instructions Recorded Confirmed Last Taken metFORMIN [Glucophage] 500 mg PO QDAY 11/17/17 06/13/18 Unknown Previous Rx's Medication Instructions Recorded Last Taken Type Cogentin 2 mg PO DAILY #30 12/04/16 Unknown Rx SEROquel 200 mg PO DAILY #30 12/04/16 Unknown Rx Nitrofurantoin Coos/M-Cryst 100 mg PO BID #10 capsule 09/26/17 Unknown Rx [Macrobid CAP] Allergies Allergy/AdvReac Type Severity Reaction Status Date / Time codeine Allergy Unknown Verified 11/16/17 18:49 erythromycin base Allergy Unknown Verified 11/16/17 18:49 Penicillins Allergy Unknown Verified 11/16/17 18:49 ED Review of Systems ROS: Stated complaint: 5MOS PREG CONTRACTIONS Other details as noted in HPI Comment: All other systems reviewed and negative ED Past Medical Hx - Past Medical History Hx Diabetes: No Hx Psychiatric Treatment: Yes (paranoid schizophrenia) - Surgical History Additional Surgical History: BERTO - Social History Smoking Status: Current Some Day Smoker Substance Use Type: Alcohol - Medications Home Medications: Home Medications Medication Instructions Recorded Confirmed Last Taken Type Cogentin 2 mg PO DAILY #30 12/04/16 06/13/18 Unknown Rx SEROquel 200 mg PO DAILY #30 12/04/16 06/13/18 Unknown Rx Nitrofurantoin Coos/M-Cryst 100 mg PO BID #10 capsule 09/26/17 06/13/18 Unknown Rx [Macrobid CAP] metFORMIN [Glucophage] 500 mg PO QDAY 11/17/17 06/13/18 Unknown History ED Physical Exam - General Limitations: Other General appearance: alert, anxious - Head Head exam: Present: atraumatic, normocephalic - Eye Eye exam: Present: normal appearance - ENT ENT exam: Present: mucous membranes moist - Neck Neck exam: Present: normal inspection - Respiratory Respiratory exam: Present: normal lung sounds bilaterally. Absent: respiratory distress, wheezes, rales, rhonchi, stridor - Cardiovascular Cardiovascular Exam: Present: regular rate, normal rhythm. Absent: systolic murmur, diastolic murmur, rubs, gallop - GI/Abdominal GI/Abdominal exam: Present: soft, normal bowel sounds. Absent: distended, tenderness, guarding, rebound, rigid - Extremities Exam Extremities exam: Present: normal inspection - Back Exam Back exam: Present: normal inspection - Neurological Exam Neurological exam: Present: alert, oriented X3 - Psychiatric Psychiatric exam: Present: normal affect, normal mood - Skin Skin exam: Present: warm, dry, intact, normal color. Absent: rash ED Course Vital Signs 12/22/18 12/22/18 17:44 17:55 Temperature 99.1 F 99.1 F Pulse Rate 94 H 94 H Respiratory 18 18 Rate Blood Pressure 105/66 Blood Pressure 105/66 [Left] O2 Sat by Pulse 99 98 Oximetry ED Medical Decision Making - Lab Data Result diagrams: 12/22/18 17:59 12/22/18 17:59 Lab Results 12/22/18 12/22/18 12/22/18 Range/Units 17:59 17:59 17:59 WBC 6.0 (4.5-11.0) K/mm3 RBC 3.82 (3.65-5.03) M/mm3 Hgb 12.1 (10.1-14.3) gm/dl Hct 34.5 (30.3-42.9) % MCV 90 (79-97) fl MCH 32 (28-32) pg MCHC 35 H (30-34) % RDW 13.0 L (13.2-15.2) % Plt Count 310 (140-440) K/mm3 Lymph % (Auto) 42.6 H (13.4-35.0) % Coos % (Auto) 9.4 H (0.0-7.3) % Eos % (Auto) 3.4 (0.0-4.3) % Baso % (Auto) 1.4 (0.0-1.8) % Lymph # 2.6 (1.2-5.4) K/mm3 Coos # 0.6 (0.0-0.8) K/mm3 Eos # 0.2 (0.0-0.4) K/mm3 Baso # 0.1 (0.0-0.1) K/mm3 Seg Neutrophils % 43.2 (40.0-70.0) % Seg Neutrophils # 2.6 (1.8-7.7) K/mm3 Sodium 136 L (137-145) mmol/L Potassium 3.8 (3.6-5.0) mmol/L Chloride 99.6 (98-107) mmol/L Carbon Dioxide 21 L (22-30) mmol/L Anion Gap 19 mmol/L BUN 8 (7-17) mg/dL Creatinine 0.7 (0.7-1.2) mg/dL Estimated GFR > 60 ml/min BUN/Creatinine Ratio 11 % Glucose 136 H (65-100) mg/dL Calcium 8.8 (8.4-10.2) mg/dL HCG, Qual (Negative) Salicylates < 0.3 L (2.8-20.0) mg/dL Acetaminophen (10.0-30.0) ug/mL Plasma/Serum Alcohol (0-0.07) % 12/22/18 12/22/18 12/22/18 Range/Units 17:59 17:59 17:59 WBC (4.5-11.0) K/mm3 RBC (3.65-5.03) M/mm3 Hgb (10.1-14.3) gm/dl Hct (30.3-42.9) % MCV (79-97) fl MCH (28-32) pg MCHC (30-34) % RDW (13.2-15.2) % Plt Count (140-440) K/mm3 Lymph % (Auto) (13.4-35.0) % Coos % (Auto) (0.0-7.3) % Eos % (Auto) (0.0-4.3) % Baso % (Auto) (0.0-1.8) % Lymph # (1.2-5.4) K/mm3 Coos # (0.0-0.8) K/mm3 Eos # (0.0-0.4) K/mm3 Baso # (0.0-0.1) K/mm3 Seg Neutrophils % (40.0-70.0) % Seg Neutrophils # (1.8-7.7) K/mm3 Sodium (137-145) mmol/L Potassium (3.6-5.0) mmol/L Chloride (98-107) mmol/L Carbon Dioxide (22-30) mmol/L Anion Gap mmol/L BUN (7-17) mg/dL Creatinine (0.7-1.2) mg/dL Estimated GFR ml/min BUN/Creatinine Ratio % Glucose (65-100) mg/dL Calcium (8.4-10.2) mg/dL HCG, Qual Negative (Negative) Salicylates (2.8-20.0) mg/dL Acetaminophen < 5.0 L (10.0-30.0) ug/mL Plasma/Serum Alcohol < 0.01 (0-0.07) % - Medical Decision Making Patient stated that if we want to do anything about her she wanted to leave. I did show her that she was not which she states that that wasn't her test. I asked the patient to stay for a psychiatric evaluation as she stated she did not want to she was only here for her "". Critical care attestation.: If time is entered above; I have spent that time in minutes in the direct care of this critically ill patient, excluding procedure time. ED Disposition Clinical Impression: Delusion of Disposition: DC-01 TO HOME OR SELFCARE Is pt being admited?: No Does the pt Need Aspirin: No Condition: Stable Time of Disposition: 20:56
[2018-12-22 17:56] VITALS: BP 105/66
[2018-12-22 18:56] LABS: Hematocrit 34.5 % (30.3-42.9); Hemoglobin 12.1 gm/dl (10.1-14.3); Lymphocytes % (Auto) 42.6 % (13.4-35.0); Mean Corpuscular HGB Conc 35 % (30-34); Mean Corpuscular Volume 90 fl (79-97); Monocytes % (Auto) 9.4 % (0.0-7.3); Platelet Count 310 K/mm3 (140-440); Red Blood Count 3.82 M/mm3 (3.65-5.03)
[2018-12-22 18:57] LABS: Basophils # (Auto) 0.1 K/mm3 (0.0-0.1); Basophils % (Auto) 1.4 % (0.0-1.8); Eosinophils # (Auto) 0.2 K/mm3 (0.0-0.4); Eosinophils % (Auto) 3.4 % (0.0-4.3); Lymphocytes # (Auto) 2.6 K/mm3 (1.2-5.4); Monocytes # (Auto) 0.6 K/mm3 (0.0-0.8)
[2018-12-22 19:14] LABS: BUN/Creatinine Ratio 11; Blood Urea Nitrogen 8 mg/dL (7-17); Calcium 8.8 mg/dL (8.4-10.2); Hemolysis Index 18
== END 2018-12-22 22:42 | disposition home or self-care (01) ==
LOC: ED 17:17
DX: F22 Delusional disorders (principal); F17.200 Nicotine dependence, unspecified, uncomplicated; Z88.5 Allergy status to narcotic agent; Z88.0 Allergy status to penicillin; Z88.1 Allergy status to other antibiotic agents; F20.0 Paranoid schizophrenia
CPT/HCPCS: 36415; 80048; 84703; 85025; 99284; G0480; 80320